=== PATIENT | male | born 1965 | race Caucasian/White ===

== ENCOUNTER → 2024-03-13 | Outpatient (CLI) | payer MEDICARE, MEDICAID, SELFPAY ==
--- NOTE | 2024-03-13 07:31 | MRI_ITS ---
STUDY: MRI CERVICAL SPINE REASON FOR EXAM: Male, 58 years old. pain -- Multi-Levels TECHNIQUE: MRI examination of the cervical spine obtained with standard protocol including multiplanar multiecho Noncontrast imaging. Contrast: No contrast administered COMPARISON: Plain film examination cervical spine dated 02/28/2024. FINDINGS: Vertebral bodies and alignment: 1. Vertebral body height and alignment are maintained, there is however reversal of cervical lordosis. No evidence fracture destructive marrow replacement process subluxation or acutely acquired canal stenosis. No significant Modic endplate changes noted. 2. Prevertebral soft tissue planes have normal appearance. Normal appearance the odontoid process and alignment of the craniocervical junction. 3. Normal appearance the posterior muscular fascial planes of the cervical spine, and the posterior ligamentous support structure the cervical spine is intact. Intervertebral disc levels: C2-3: Disc desiccation, no evidence of disc herniation or canal stenosis. Bilateral foraminal stenosis present greater on LEFT than RIGHT contributed by uncovertebral joint and facet hypertrophic changes. C3-4: Disc desiccation, broad-based disc bulge/protrusion osteophyte complex with deformity the anterior epidural space at, central canal is maintained at 9 mm. Mild cord contact without evidence of acute cord compression. Bilateral foraminal stenosis greater on LEFT than RIGHT. C4-5: Disc desiccation, minimal disc bulge and osteophyte complex without evidence of canal stenosis or cord compression. Bilateral foraminal narrowing greater on LEFT than RIGHT. C5-6: Disc desiccation, mild loss disc height, broad-based posterior disc bulge and osteophyte complex. There is deformity of the anterior epidural space. No evidence however of central canal stenosis. No cord compression. Bilateral foraminal stenosis due to uncovertebral joint hypertrophic changes with potential bilateral C6 nerve root impingement within the neural foramina. C6-7: Disc desiccation, broad-based posterior disc bulge without evidence disc herniation or canal stenosis. Bilateral foraminal stenosis due to uncovertebral joint hypertrophic changes greater on RIGHT than LEFT with potential impingement of the emerging C7 nerve root greater on the RIGHT. C7-T1: Normal endplates. Normal disc height, signal and morphology. Normal central canal and intervertebral neural foramina. Spinal CORD: There is normal appearance the spinal cord. No intramedullary signal abnormality, masses or syrinx. Normal appearance of the cervical medullary junction. No evidence cord compression. MRI/Spine Cervical (Routine) IMPRESSION: 1. Multilevel cervical spondylosis, reversal of cervical lordosis is noted. Only mild canal narrowing. There is broad-based chronic appearing bulge/protrusion osteophyte complex at T3-4 with mild cord contact. 2. No acute disc herniation, acutely acquired canal stenosis or cord compression or impingement. 3. Multilevel foraminal stenosis as detailed contributed by uncovertebral joint and facet hypertrophic changes. This is most significant at C5-C6 with potential impingement of the C6 nerve roots bilaterally, as well as RIGHT greater than LEFT at C6-7 with potential impingement of the emerging RIGHT C7 nerve root. 4. Normal appearance the spinal cord, no evidence cord compression and edema or intramedullary signal abnormality Electronically Signed: Harinder Quevedo MD at 21:19 EDT ,
== END | disposition home or self-care (01) ==
LOC: MRI 15:11
PROVIDERS: Referring Provider Orthopaedic Surgery; Visit Provider Orthopaedic Surgery
DX: M50.30 Other cervical disc degeneration, unspecified cervical region (principal)
CPT/HCPCS: 72141

== ENCOUNTER 2024-07-25 12:42 | Inpatient (IN) | payer MEDICARE, MEDICAID, SELFPAY ==
--- NOTE | 2024-05-03 14:13 | EKG12_ITS ---
Test Reason : PREOP Blood Pressure : / mmHG Vent. Rate : 058 BPM Atrial Rate : 058 BPM P-R Int : 150 ms QRS Dur : 092 ms QT Int : 400 ms P-R-T Axes : 071 -11 079 degrees QTc Int : 392 ms Sinus bradycardia Nonspecific T wave abnormality Abnormal ECG Confirmed by AKIKO RINALDI, ELEANOR ([id number]), continuity editor MILTON GRAY ([id number]) on 05/04/2024 6:02:48 AM Referred By: Je Beckett Confirmed By:ELEANOR WHARTON MD
[2024-05-03 15:26] LABS: Absolute Neutrophil Count 6.3 X10^3/uL (2.0-7.7); Basophil% 0.9 % (0-1); Eosinophil# 0.37 X10^3/uL; Eosinophils% 3.4 % (0-5); Hematocrit 46.8 % (40-54); Hemoglobin 15.8 g/dL (13.0-16.5); Lymphocyte % 28.7 % (19-41); Mean Corp Hgb Conc 33.8 g/dL (32-36); Mean Corpuscular Hgb 30.4 pg (27.0-32.0); Mean Platelet Vol. 10.4 fl (6.2-12.0); Monocyte# 0.89 X10^3/uL; Monocyte% 8.2 % (0-10); NRBC Flagged by Analyzer 0 % (0-5); Neutrophil # 6.26 X10^3/uL (2.7-7.7); Neutrophil % 58.2 % (47-70); Platelet Count 228 K/mm3 (150-450); RBC Distribution Width CV 12.8 % (11.6-14.6); RBC Distribution Width SD 42.3 fl (35.1-43.9); White Blood Count 10.8 K/mm3 (4.4-11.0)
[2024-05-03 15:44] LABS: Magnesium 2.3 mg/dL (1.6-2.6)
[2024-05-03 15:47] LABS: Anion Gap 5 (5-15); BUN 19 mg/dL (7-18); BUN/Creat Ratio 12.4 RATIO (10-20); Calcium,Total 8.9 mg/dL (8.5-10.1); Chloride 104 mmol/L (98-107); Creatinine, Serum 1.53 mg/dL (0.70-1.30); EST Glomerular Filtration Rate 49 mL/min (>60); Est Glom Filt Rate - Afr Amer 60 mL/min (>60); Glucose 127 mg/dL (74-106); Potassium 4.3 mmol/L (3.5-5.1); Sodium Level 137 mmol/L (136-145)
[2024-05-03 16:32] LABS: HIV - WCH Non-Reactive (Nonreactive); Hepatitis B Surface Antibody Reactive; Hepatitis C Antibody Non-Reactive (Nonreactive)
[2024-05-05 05:07] LABS: Hepatitis A AB, Total Negative (Negative)
[2024-07-25] VITALS (18 sets, daily range): BP systolic 107–176; BP diastolic 71–103; PULSE 69–104; RESP 16–22; TEMP 36.5–36.8; O2SAT 94–100; BMI 29.5
--- NOTE | 2024-07-25 07:36 | PRE.ANES_ITS ---
ASA Classification* ASA Classification ASA Classification: 3 Assessment & Plan Anesthesia* Anesthesia Assessment Anesthesia Assessment: Discussed sedation and/or anesthesia options, risks, benefits, and alternatives with patient/parents/legal guardian/POA. Questions invited. The patient/parents/legal guardian/POA seems to understand and agrees to proceed with anesthesia plan. Reviewed the physical assessment, medical history, allergy history and patient home medications list prior to surgery/procedure/anesthetic and documented any changes. Performed airway and anesthesia risk assessments. Anesthesia Type Anesthesia Type: General (see written pre anesthesia record for full assessment) Anesthesia Focused Assessment* Airway Assessment Mouth opens: >3 cm Mallampati Score: II Focused Labs Anesthesia Preop lab: CBC WBC 10.8 K/mm3 (4.4-11.0) 05/03/24 14:43 RBC 5.20 M/mm3 (4.6-6.2) 05/03/24 14:43 Hgb 15.8 g/dL (13.0-16.5) 05/03/24 14:43 Hct 46.8 % (40-54) 05/03/24 14:43 Plt Count 228 K/mm3 (150-450) 05/03/24 14:43 CHEMISTRY Potassium 4.3 mmol/L (3.5-5.1) 05/03/24 14:43 Sodium 137 mmol/L (136-145) 05/03/24 14:43 Magnesium 2.3 mg/dL (1.6-2.6) 05/03/24 14:42 BUN 19 mg/dL (7-18) H 05/03/24 14:43 Creatinine 1.53 mg/dL (0.70-1.30) H 05/03/24 14:43 Glucose 127 mg/dL (74-106) H 05/03/24 14:43 COAG Pre-Assessment Diagnosis/Proposed Procedure Planned Operative Procedure(s): (N/A) Anterior Cervical Disc Fusion C3-4, C4-5 and C5-6 Anesthesia History 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 When Was Last Pacemaker Check QUESTION #4 FULL TEXT: You/Your Family Experience fever (hyperthermia) with Anesthesia Last Oral Intake Last Oral intake: Last Oral Intake NPO since Meds taken in AM with sips of water? Meds patient instructed to take am of surgery PONV PONV - residential field manager: PONV - residential field manager Female No 04/28/24 13:10 HX of Motion Sickness No 04/28/24 13:10 HX of N/V After Surgery No 04/28/24 13:10 Non-Smoker No 04/28/24 13:10 Duration of Surgery greater Yes 04/28/24 13:10 than 60 minutes Number of Risk Factors 1 04/28/24 13:10 PONV Score Low Risk 04/28/24 13:10 Height & Weight Height & Weight: Anesthesia: Height & Weight Height 59 ft 03/14/24 14:53 Respiratory Assessment Respiratory Assessment - residential field manager: Respiratory Tract Infection Hx - residential field manager Hx Respiratory Tract Infection No 04/28/24 13:10 STOP Sleep Apnea STOP Sleep Apnea - residential field manager: STOP Sleep Apnea - residential field manager Hx Hypertension Yes: PER PT, CONTROLLED ON 04/28/24 13:10 MEDS Hx Sleep Apnea No 04/28/24 13:10 CPAP BIPAP Do you snore loudly (louder No 04/28/24 13:10 than talking or can be heard Do you often feel tired/ No 04/28/24 13:10 fatigued/ sleepy during daytime? Has anyone observed you stop No 04/28/24 13:10 breathing during sleep? STOP Results Negative 04/28/24 13:10 QUESTION #5 FULL TEXT : Do you snore loudly (louder than talking or can be heard through closed doors)? 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 Specify any problems Hx of Preganancy in last 3 N/A 04/28/24 13:10 Months Nurse Filling Out Transfusion MGRIFFITH 04/28/24 13:10 & Questions: Date: 04/28/24 04/28/24 13:10 Time: 13:14 04/28/24 13:10 Patient unable to answer at this time (ie. confused, unrespo /Reproduction History /Reproductive History - residential field manager: /Reproductive Hx- residential field manager Hx Now Gestational Age (in weeks): EDC: Hx Hx Para Hx Section SAB Active Medications Active Medications: Current Medications Generic Name Dose Route Start Last Admin Trade Name Freq PRN Reason Stop Dose Admin Acetaminophen 1,000 mg 07/25/24 09:00 Acetaminophen 500 Mg Tablet PO 07/25/24 09:01 X1 ONE Dexamethasone Sodium Phosphate 10 mg 07/25/24 10:00 Dexamethasone 10 Mg/Ml Vial IV 07/25/24 10:01 PREOP ONE Cefazolin Sodium 2 gm/ N/A 20 mls @ 400 mls/hr 07/25/24 09:00 IV 07/25/24 09:02 PREOP ONE Magnesium Sulfate 1 gm/ 102 mls @ 408 mls/hr 07/25/24 09:00 Dextrose IV 07/25/24 09:14 X1 ONE Lactated Ringer's 1,000 mls @ 15 mls/hr 07/25/24 07:30 IV 07/30/24 20:49 .Q48H SARWAT Protocol Insulin Human Lispro 1 - 6 unit 07/25/24 09:00 Insulin Lispro 100 Unit/Ml Insuln.Pen SC Q4H PRN PRN BG>/= 180, SEE PROTOCOL Protocol PFSH Medical History Wears dentures Bipolar disorder Anxiety Depression PTSD (post-traumatic stress disorder) Marijuana use Ambulates with cane Arthritis Urinary incontinence Migraine headache Back pain Seizures History of ulceration Smoker Shortness of breath on exertion Chronic cough Leg cramps History of echocardiogram History of stress test History of heart attack GERD (gastroesophageal reflux disease) COPD (chronic obstructive pulmonary disease) High cholesterol Hypertension Heart disease Home Medications ?Medication ?Instructions ?Recorded ?Last Taken ?Type albuterol sulfate 90 mcg/actuation 2 puff inhalation Q6H PRN 05/12/23 Unknown History aerosol inhaler shortness of breath or wheezing amlodipine 5 mg tablet 5 mg PO DAILY HTN 05/12/23 Unknown History aspirin 81 mg tablet,delayed 81 mg PO DAILY HEART HEALTH 05/12/23 Unknown History release atorvastatin 80 mg tablet 80 mg PO DAILY HLD 05/12/23 Unknown History budesonide 180 mcg/actuation 2 inh inhalation BID BREATHING 05/12/23 Unknown History breath activated powder inhaler escitalopram oxalate 10 mg tablet 10 mg PO DAILY MOOD 05/12/23 Unknown History ezetimibe 10 mg tablet 10 mg PO DAILY HLD 05/12/23 Unknown History gabapentin 600 mg tablet 600 mg PO Q12H NERVE PAIN 05/12/23 Unknown History ipratropium 0.5 mg-albuterol 3 mg 3 ml inhalation Q6H PRN shortness 05/12/23 Unknown History (2.5 mg base)/3 mL nebulization of breath soln lisinopril 40 mg tablet 40 mg PO DAILY HTN 05/12/23 Unknown History metoprolol succinate 50 mg 50 mg PO BID HTN 05/12/23 Unknown History tablet,extended release 24 hr paliperidone 3 mg tablet,extended 3 mg PO QAM PTSD 05/12/23 Unknown History release 24 hr pantoprazole 40 mg tablet,delayed 40 mg PO DAILY GERD 05/12/23 Unknown History release tiotropium bromide 2.5 2 puff inhalation DAILY BREATHING 05/12/23 Unknown History mcg/actuation mist for inhalation (Spiriva Respimat) tizanidine 4 mg tablet 4 mg PO Q8H PRN muscle spasticity 05/12/23 Unknown History Allergy/AdvReac Type Severity Reaction Status Date / Time phenytoin (From Dilantin) Allergy UNKNOWN Verified 07/24/24 13:18 Family History Other Arthritis COPD (chronic obstructive pulmonary disease) Diabetes Myocardial infarction Surgical History History of coronary artery stent placement History of colonoscopy H/O cataract removal with insertion of prosthetic lens History of vasectomy History of tonsillectomy Social History Smoking Status: Current every day smoker tobacco type: cigarettes alcohol intake: current Review of Systems (Anesthesia) ROS Narrative System reviewed and no additional complaints, except as documented.
[2024-07-25] MEDS: Lactated Ringers 1,000 ML 15 ML IV (07:45)
[2024-07-25] MEDS: Magnesium 1 GM over 15 mins IV (07:45)
--- NOTE | 2024-07-25 08:00 | RAD_ITS ---
STUDY: X-RAY - CERVICAL SPINE REASON FOR EXAM: Male, 59 years old. Intraoperative exam TECHNIQUE: Intraoperative Views Of The Cervical Spine were obtained intraoperatively on a C-arm. COMPARISON: 03/24/2024 FINDINGS: Intraoperative views of the cervical spine were obtained for anterior fusion of C3-C7 with plates and screws. Images were obtained for documentation Number of fluoroscopic images 6. Fluoroscopy time: 12 seconds. Radiation dose: 1.53 mGy. RAD/Cerv Spine 2 or 3 Views IMPRESSION: Intraoperative exam as described above. Electronically Signed: Ryan Cameron MD at 12:34 EDT ,
[2024-07-25 08:08] LABS: Bedside Glucose 84 mg/dL (74-106)
[2024-07-25] MEDS: Acetaminophen 500 MG Tablet 1000 MG PO (08:08)
[2024-07-25] MEDS: dexAMETHasone 10 MG/ML Vial IV (08:10)
--- NOTE | 2024-07-25 08:57 | HP.PCM_ITS ---
History and Physical Date of Admission: 07/25/24 MR#: [id number] Acct: [id number] Name: BAKARI BELTRÁN Sr. Rep #: [id number] : 1965 Provider: Dr. Je Beckett MD Age/Sex: 59/M Location: [facility] – [place] Status: Signed Intake Vital Signs 03/14/2414:53 Height 59 ft Intake Visit Reasons: cervical fusion Chief Complaint: Cervical neck pain Accompanied by: Significant Other Allergies phenytoin (From Dilantin) Allergy (Verified 07/25/24 07:58) UNKNOWN Medications ?Medication ?Instructions ?Recorded ?Confirmed ?Type albuterol sulfate 90 mcg/actuation 2 puff inhalation Q6H PRN 05/12/23 07/25/24 History aerosol inhaler shortness of breath or wheezing amlodipine 5 mg tablet 5 mg PO DAILY HTN 05/12/23 07/25/24 History aspirin 81 mg tablet,delayed 81 mg PO DAILY HEART HEALTH 05/12/23 07/25/24 History release atorvastatin 80 mg tablet 80 mg PO DAILY HLD 05/12/23 07/25/24 History budesonide 180 mcg/actuation 2 inh inhalation BID BREATHING 05/12/23 07/25/24 History breath activated powder inhaler ezetimibe 10 mg tablet 10 mg PO DAILY HLD 05/12/23 07/25/24 History gabapentin 600 mg tablet 600 mg PO Q12H NERVE PAIN 05/12/23 07/25/24 History ipratropium 0.5 mg-albuterol 3 mg 3 ml inhalation Q6H PRN shortness 05/12/23 07/25/24 History (2.5 mg base)/3 mL nebulization of breath soln lisinopril 40 mg tablet 40 mg PO DAILY HTN 05/12/23 07/25/24 History metoprolol succinate 50 mg 50 mg PO BID HTN 05/12/23 07/25/24 History tablet,extended release 24 hr pantoprazole 40 mg tablet,delayed 40 mg PO DAILY GERD 05/12/23 07/25/24 History release tiotropium bromide 2.5 2 puff inhalation DAILY BREATHING 05/12/23 07/25/24 History mcg/actuation mist for inhalation (Spiriva Respimat) tizanidine 4 mg tablet 4 mg PO Q8H PRN muscle spasticity 05/12/23 07/25/24 History PFSH Medical History Wears dentures Bipolar disorder Anxiety Depression PTSD (post-traumatic stress disorder) Marijuana use Ambulates with cane Arthritis Urinary incontinence Migraine headache Back pain Seizures History of ulceration Smoker Shortness of breath on exertion Chronic cough Leg cramps History of echocardiogram History of stress test History of heart attack GERD (gastroesophageal reflux disease) COPD (chronic obstructive pulmonary disease) High cholesterol Hypertension Heart disease Surgical History History of coronary artery stent placement History of colonoscopy H/O cataract removal with insertion of prosthetic lens History of vasectomy History of tonsillectomy Family History Other Arthritis COPD (chronic obstructive pulmonary disease) Diabetes Myocardial infarction Social History Smoking Status: Current every day smoker tobacco type: cigarettes alcohol intake: current HPI cervical fusion Details: This documentation accurately reflects the service provided and the decisions made by me, Dr. Je Beckett MD 07/24/24 1314. Part of today?s visit was documented by Veronica HERNANDEZ and Diana RUBIO, acting as scribe. BAKARI BELTRÁN is a 59 year old M here today for pre op cervical spine dos: 07/25/24. He has been cleared from cardiology and his PCP. He has continued to smoke about a pack of day leading up to this surgery. He has stopped his aspirin in preparation for tomorrow. HPI from 03/24/24: BAKARI BELTRÁN is a 58 year old M here today for Cervical pain. Patient saw Dr Childs who went over his MRI review and told the Patient he might need a Cervical fusion, and Patient is ready to move forward with it. Rates pain 5 out of 10 today as soreness radiates from neck into B/L scapula areas. No new concerns. Bakari is here with his ex-. He has seen Dr. Childs multiple times for low back pain as well as neck pain. He mentioned that his neck pain has been there since 1987 from an accident. However since his lower back symptoms were always more than the neck, he felt like his neck symptoms were always neglected. Over time he has worsened with his neck pain and now this radiates towards the occiput as well as to the intrascapular area both sides. He denies any actual radiation into the upper extremities but mentions that his left hand feels weak and numb especially in the dorsum of the hand. He notices early dexterity issues especially in his right hand which is his dominant hand his handwriting has worsened. He also mentions of balance issues some of which are attributable to dizziness and lightheadedness but sometimes he feels like his legs give out on him even when he is completely conscious. He mentioned that his dexterity and balance issues are slowly worsening with time. He used to smoke 3 packs/day and now he has cut down to 1 pack/day. He has known COPD. Ortho Exam General General: Yes no acute distress Neurologic: Yes alert and Yes oriented x3 Spine SPINE TESTING CERVICAL THORACIC LUMBAR Musculoskeletal Strength 0=absent - 5=normal Details: Examination of the neck shows midline and paraspinal tenderness. Neurologic evaluation of upper and lower extremity shows 5 out of 5 power normal shows normal sensations in all dermatomes of both upper and lower extremities. Brady's is negative. Romberg's is positive. Tandem gait shows severe imbalance. There is no hyperreflexia lower extremities. He holds his neck in a forward flexed posture suggestive of kyphosis. 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 Again reviewed prior imaging which showed C3-4 spondylolisthesis with kyphosis. Multilevel disc height loss noticed. C3-6 show disc degeneration with foraminal stenosis. C4-5 and C5-6 show mild retrolisthesis. Cord indentation seen most severe at C3-4. Reviewed the benefits and risks of surgery. Risks of surgery include bleeding, infection, visceral injury, hardware failure, pseudoarthrosis, adjacent segment degeneration, pneumonia, DVT, pulmonary embolism, atelectasis, dysphagia, persistent pain, stretch injuries, chance for future surgeries. Discussed that because he is a smoker and has not stopped prior to surgery, his infection risk and heal time is increased. Patient understands and agrees to proceed with surgery. Explained in detail the procedure of the cervical fusion. Discussed cervical collar wear schedule. Discussed post surgery restrictions such as no bending, lifting, or twisting. Answered all questions that he had today in preparation for tomorrow. Consent was signed. Patient is in agreement.
[2024-07-25] MEDS: Cefazolin 2 GM in Syringe IV (09:04)
--- NOTE | 2024-07-25 12:28 | OP.PCM_ITS ---
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 Anesthesia: Gen. endotracheal Estimated blood loss: 40 mL Complications: None Instrumentation used: Medtronic [place] Elite plate, LASR corticocancellous block Indications: The patient is a pleasant 59-year-old gentleman who presented with neck pain, bilateral upper extremity radiation, left hand weakness, difficulty with balance. MRI showed C3-6 disc degeneration, kyphosis, stenosis with cord indentation without cord signal changes. In order to halt the progression of myelopathy, the patient requested surgical treatment. All risks and benefits of the procedure were explained to the patient. The risks include but are not limited to infection, bleeding, injury to nerves and vessels, vertebral artery injury, spinal cord injury, paralysis, vocal cord paralysis, injury to esophagus, pseudoarthrosis, need for further procedures, adjacent segment degeneration. Procedure: The patient was identified in the preoperative suite using unique patient identifiers. Skin was marked consent was taken and all questions were answered. The patient was then brought back to the operative room and a timeout was performed. General endotracheal anesthesia was given. Intraoperative neuro monitoring leads were applied. The patient was carefully positioned supine on a regular OR table. A lateral view with a C-arm was done to identify the level and to define the incision. The anterior neck was then prepped and draped in the usual fashion. A final timeout was then performed. A transverse skin incision was taken to the left of midline. Subcutaneous tissue was then divided with Bovie. Platysma was identified and cut along the incision with scissors. The fascial interval between the sternocleidomastoid and the larynx was developed. Omohyoid was identified and retracted. The esophagus with the larynx was retracted medially to reach the prevertebral fascia. Marker x-ray was performed with bent spinal needle and disc space and levels were confirmed. Longus coli muscle was elevated on both sides at and above and below C3-6 discs. Self-retaining retractors were then placed. A long handle knife was then used to perform annulotomy at C3-4. Disc fragments were removed with the pituitary. Simpson pins were placed in C3 and C4 for disc distraction. Curettes and bur was utilized to remove cartilage from the endplates. Discectomy was performed laterally up to the uncovertebral joints. Posterior osteophytes were thinned down with the bur and adequate decompression in the central and foraminal areas were performed and PLL was thinned out. Once the disc space was prepared, trials of various sizes were utilized. Thorough irrigation was given. 6 mm LASR cortical cancellous allograft bone large footprint was then fashioned in such a way that concavities were burred out inferiorly and superiorly and half cc of DBX (demineralized bone matrix) was squeezed into the cancellous portion. The graft was then inserted into the C3-4 disc space. The retractors were then repositioned and the procedure was repeated for C4-5 and C5-6 discs with complete discectomy. Graft sizes were 6 mm at with large footprint at at both C4-5 and C5-6. The grafts were found to be in good apposition with good pullout strength. A 57 mm Medtronic [place] Elite plate was then fixed to C3-6 with 16 mm screws. A lateral x-ray was then taken to check the length of the screws. Both AP and lateral x-rays showed good positioning of plate and screws. The locking mechanism over the screw heads was then turned. Thorough irrigation was again given. Hemostasis was achieved. A Erma drain was then inserted. Closure was done with 3-0 Vicryl for the platysma and subcutaneous tissue layers and 4-0 Monocryl for the skin. Closure was done around the drain. Steri-Strips were applied and dressing was done with 4 x 4 gauze and Tegaderm. A cervical collar was then applied. The patient was then woken up from anesthesia extubated and taken to PACU in stable condition. From here, the patient will be transitioned to the floor. Intraoperative neuro monitoring was performed throughout this procedure. Motor evoked potentials were run periodically. All potentials remained at baseline throughout the procedure. I was present for the entire surgery and performed the surgery myself. Surgeon: Je Beckett youth career specialist: Diana Granados Procedures Musculoskeletal [id number]: Other Procedure See Report
--- NOTE | 2024-07-25 12:55 | PCM.POST.ANE ---
Anesthesia: Postop Eval I Current Vital Signs Temperature: 97.7 F Pulse Rate: 102 Blood Pressure: 118/83 Respiratory Rate: 22 Pulse Ox: 100 Assessment Airway patent: Yes Spontaneous unlabored respirations: Yes nausea: No Vomiting: No Anesthesia Complication: No Fluid Hydration Crystalloid volume administer (ml): 1,000 Total IV fluid infused: 1,000 Progress Note Anesthesia document: Postop Eval 1 completed: Yes
[2024-07-25] MEDS: dexAMETHasone 4 MG/ML Vial IV ×2 (14:06→20:05)
[2024-07-25] MEDS: Cefazolin 2 GM in 0.9% Normal Saline (100mL Bag) 100 ML IV (16:51)
[2024-07-25] MEDS: Ensure Surgery 237 ML LIQUID PO (16:51)
[2024-07-25] MEDS: Methocarbamol 500 MG Tablet 1000 MG PO ×2 (16:52→23:15)
--- NOTE | 2024-07-25 16:55 | PCM.POSTANE2 ---
Anesthesia Postop Eval I Sum Anesthesia Postop Eval I Summary Anesthesia Postop Eval I Summary: Anesthesia Postop Eval I: Assessment Summary Airway patent Spontaneous unlabored respirations Mental status nausea Vomiting Anesthesia Postop Eval I: Fluid Summary Crystalloid volume administer (ml) Colloids volume administered ( ml) Blood Product volume administered (ml) Total IV fluid infused Anesthesia Postop Eval I: Summary Notes Anesthesia Complication Anesthesia Complication Comment: Post-operative progress note Anesthesia: Postop Eval II Evaluation Mental status: Awake and Calm Pain Level: 2 nausea: No Vomiting: No Complications Anesthesia Complication: No
[2024-07-25] MEDS: Morphine 2 MG/ML Syringe IV (17:07)
[2024-07-25] MEDS: Metoprolol Tartrate 50 MG Tablet PO (17:11)
[2024-07-25] MEDS: HYDROcodone Bitartrate/Apap 5/325 Tablet PO ×2 (18:06→22:48)
[2024-07-25] MEDS: Budesonide Respules 0.5 MG/2 ML AMPUL.NEB. INHALATION (19:07)
[2024-07-25] MEDS: Ipratropium 0.5 MG/2.5 ML SOLUTION INHALATION (19:07)
[2024-07-25] MEDS: 0.9% Saline Lock 10 ML Syringe IV (20:05)
[2024-07-25] MEDS: Senna/Docusate Sodium 1 Tablet 2 TABLET PO (23:14)
[2024-07-25] MEDS: Gabapentin 600 MG Tablet PO (23:14)
[2024-07-26] MEDS: Cefazolin 2 GM in 0.9% Normal Saline (100mL Bag) 100 ML IV (01:37)
[2024-07-26] MEDS: dexAMETHasone 4 MG/ML Vial 2 MG IV ×2 (01:37→08:41)
[2024-07-26] MEDS: 0.9% Saline Lock 10 ML Syringe IV (03:32)
[2024-07-26] MEDS: Morphine 2 MG/ML Syringe IV (03:33)
[2024-07-26 03:37] VITALS: BP 137/93; PULSE 83; RESP 18; TEMP 36.7; O2SAT 95
[2024-07-26 06:05] LABS: Hematocrit 44.1 % (40-54); Hemoglobin 14.8 g/dL (13.0-16.5); Mean Corp Hgb Conc 33.6 g/dL (32-36); Mean Corpuscular Hgb 30.5 pg (27.0-32.0); Mean Corpuscular Volume 90.7 fL (80-94); Platelet Count 244 K/mm3 (150-450); RBC Distribution Width CV 12.5 % (11.6-14.6); RBC Distribution Width SD 41.2 fl (35.1-43.9); Red Blood Count 4.86 M/mm3 (4.6-6.2); White Blood Count 18.3 K/mm3 (4.4-11.0)
[2024-07-26 06:27] LABS: Anion Gap 6 (5-15); BUN 15 mg/dL (7-18); BUN/Creat Ratio 13.9 RATIO (10-20); Calcium,Total 8.8 mg/dL (8.5-10.1); Chloride 106 mmol/L (98-107); Creatinine, Serum 1.08 mg/dL (0.70-1.30); EST Glomerular Filtration Rate 74 mL/min (>60); Est Glom Filt Rate - Afr Amer 89 mL/min (>60); Estimated Creatinine Clearance 79.89 ml/min; Glucose 145 mg/dL (74-106); Potassium 4.4 mmol/L (3.5-5.1); Sodium Level 136 mmol/L (136-145)
--- NOTE | 2024-07-26 07:00 | RAD_ITS ---
STUDY: X-RAY - CERVICAL SPINE REASON FOR EXAM: Male, 59 years old. s/p cervical fusion -- please do upright AP and LAT TECHNIQUE: 2 view(s) of the cervical spine were obtained. COMPARISON: 03/24/2024 FINDINGS: Normal anterior atlantoaxial articulation. Normal odontoid process. Normal cervical lordosis. Interval anterior cervical discectomy and fusion from C3 through C6 with anatomic alignment. Normal disc space heights. Normal visualized intervertebral neuroforamina. The soft tissue structures are unremarkable. RAD/Cerv Spine 2 or 3 Views IMPRESSION: Interval anterior cervical discectomy and fusion from C3 through C6. Electronically Signed: Harinder Riojas MD at 9:31 EDT ,
[2024-07-26] MEDS: Ipratropium 0.5 MG/2.5 ML SOLUTION INHALATION ×2 (07:24→12:53)
[2024-07-26] MEDS: Budesonide Respules 0.5 MG/2 ML AMPUL.NEB. INHALATION (07:24)
[2024-07-26 07:30] VITALS: PULSE 81; RESP 18
[2024-07-26] MEDS: Methocarbamol 500 MG Tablet 1000 MG PO ×2 (08:42→14:04)
[2024-07-26] MEDS: Ezetimibe 10 MG Tablet PO (08:43)
[2024-07-26] MEDS: Senna/Docusate Sodium 1 Tablet 2 TABLET PO (08:43)
[2024-07-26] MEDS: Pantoprazole Sodium 40 MG Tablet PO (08:44)
[2024-07-26] MEDS: Lisinopril 40 MG Tablet PO (08:45)
[2024-07-26] MEDS: amLODIPine 5 MG Tablet PO (08:45)
[2024-07-26] MEDS: Atorvastatin Calcium 80 MG Tablet PO (08:46)
[2024-07-26 08:47] VITALS: PULSE 78
[2024-07-26] MEDS: Metoprolol Tartrate 50 MG Tablet PO (08:47)
[2024-07-26] MEDS: HYDROcodone Bitartrate/Apap 5/325 Tablet PO (08:52)
[2024-07-26] MEDS: Ensure Surgery 237 ML LIQUID PO ×2 (08:53→11:16)
[2024-07-26] MEDS: Gabapentin 600 MG Tablet PO (08:53)
[2024-07-26 08:59] VITALS: BP 147/95; PULSE 78; RESP 19; TEMP 36.7; O2SAT 96
--- NOTE | 2024-07-26 10:55 | CASEMGMT ---
LINA HERRMANN Assessment: Face to Face with pt for initial transition planning/care coordination assessment. LINA HERRMANN introduced self and role at [facility], pt voices understanding and consents to assessment. Pt is A&O x4 and answers all questions appropriately at this time. Pt sitting up in chair in no distress. Pt states he just ambulated hallways indep. Care providers, pharmacy, and demographics verified/updated. Admitting Dx: cervical fusion Strata Score: 1 PCP:[facility] [employer] Specialists:bari Beckett; Sakshi cardio Preferred Pharmacy: [facility] Retail Insurance:[facility] Dual, [facility] Community Prescription Benefit: yes LNOK: Delfina Null, dtr; Jade Verde, ex Living Arrangements: Pt lives with ex and adult dtr in a single story home with 2-3 steps to enter with a rail. Pt reports he is I in ADLs and denies concerns at home. Transportation: Pt ex transports him to medical appts. DME:4 prong cane, walker available HHC/SNF: Denies hx of Pt states no concerns with going home at time of dc. Pt states no further concerns/needs. CM to follow. Advised pt to ask CM if any further question/concerns/needs arise, voices understanding. Pt Goal: Home Plan: Home Rosalie MILLS CM
[2024-07-26] MEDS: FLU VACC 2024-25(6MOS UP)/PF 45 MCG/0.5 ML SYRINGE IM (11:15)
[2024-07-26 13:05] VITALS: PULSE 79; RESP 18
[2024-07-26 14:07] VITALS: BP 126/86; PULSE 87; RESP 18; O2SAT 96
--- NOTE | 2024-07-26 14:08 | PCM.PN.ORT ---
Documented by User: JOANNE Aguayo 07/26/24 14:14 Subjective Subjective POD 1, C3-6 fusion. Patient is doing well with his pain well controlled. He has walked with physical therapy and has been cleared to return home. Objective Data Objective Data Vital Signs: Vital Signs Temp Pulse Resp BP Pulse Ox O2 Del Method O2 Flow Rate 98.1 F 79 18 147/95 H 96 Room Air 4 07/26/24 08:59 07/26/24 13:05 07/26/24 13:05 07/26/24 08:59 07/26/24 08:59 07/26/24 08:59 07/25/24 14:45 Oxygen Flow Rate (L/min) 4 Oxygen Delivery Method Room Air Weight: 199 lb 9.6 oz Body Mass Index (BMI) 29.5 Intake & Output: Intake and Output for Last 24 Hours 07/24/24 07/25/24 07/26/24 23:59 23:59 23:59 Intake Total 2782 / 2782 110 / 110 Balance 2782 / 2782 110 / 110 Lab / Micro Data 07/26/24 05:30 07/26/24 05:30 Labs: Laboratory Results - last 24 hr 07/26/24 05:30: WBC 18.3 H, RBC 4.86, Hgb 14.8, Hct 44.1, MCV 90.7, MCH 30.5, MCHC 33.6, RDW Std Deviation 41.2, RDW Coeff of Luis 12.5, Plt Count 244, MPV 10.0, Sodium 136, Potassium 4.4, Chloride 106, Carbon Dioxide 25.0, Anion Gap 6, BUN 15, Creatinine 1.08, Estim Creat Clear Calc 79.89, Est GFR (MDRD) Af Amer 89, Est GFR (MDRD) Non-Af 74, BUN/Creatinine Ratio 13.9, Glucose 145 H, Calcium 8.8 Micro: Microbiology 05/03/24 14:43 Swab (Method) Nasal Screen MRSA/MSSA - Final Radiography Diagnostic Testing: Radiology Impression Cervical Spine X-Ray 07/26/24 07:00 IMPRESSION: Interval anterior cervical discectomy and fusion from C3 through C6. Electronically Signed: Harinder Riojas MD at 9:31 EDT , Physical Exam Narrative Drain removed and incision cleaned and covered with gauze and tegaderm. Upper extremity strength shows 5x5 power. Normal sensation across all dermatomes. Const alert, oriented x3 and no apparent distress Assessment & Plan Assessment/Plan (1) S/P cervical spinal fusion: PLAN: Plan Discharge signed. Home meds will include hydrocodone-acetaminophen, methocarbamol, senna. Discussed that he should wear the cervical collar at all times during the first 2 weeks, follow up in 2 weeks in clinic. No bending, lifting, or twisting. Documented by User: Dr. Je Beckett MD 07/26/24 15:23 Objective Data Lab / Micro Data 07/26/24 05:30 07/26/24 05:30 Assessment & Plan Assessment/Plan (1) S/P cervical spinal fusion: PLAN: Plan Postop day 1 status post C3 6 ACDF. X-rays done, reviewed, look good. PT cleared. Tolerating soft solids. Has mild air hunger at baseline from COPD. Saturations remain within normal limits. Okay to discharge. Discharge signed. Home meds will include hydrocodone-acetaminophen, methocarbamol, senna. Discussed that he should wear the cervical collar at all times during the first 2 weeks, follow up in 2 weeks in clinic. No bending, lifting, or twisting.
== END 2024-07-26 14:21 | disposition home or self-care (01) | DRG 473 ==
LOC: ACINP 13:38 → MS3 14:50
PROVIDERS: Anesthesiology; Student in an Organized Health Care Education/Training Program; Admitting Provider Orthopaedic Surgery Orthopaedic Surgery of the Spine; PCP Nurse Practitioner Family; Referring Provider Orthopaedic Surgery Orthopaedic Surgery of the Spine; Visit Provider Orthopaedic Surgery Orthopaedic Surgery of the Spine
PROC: 0RG20K0 Fusion of 2 or more Cervical Vertebral Joints with Nonautologous Tissue Substitute, Anterior Approach, Anterior Column, Open Approach (ICD-10-PCS; CPT 22551; principal; 2024-07-25 08:30)
DX: M50.022 Cervical disc disorder at C5-C6 level with myelopathy (principal); E78.00 Pure hypercholesterolemia, unspecified; F31.9 Bipolar disorder, unspecified; J44.9 Chronic obstructive pulmonary disease, unspecified; I10 Essential (primary) hypertension; M40.202 Unspecified kyphosis, cervical region; M50.122 Cervical disc disorder at C5-C6 level with radiculopathy; I25.10 Atherosclerotic heart disease of native coronary artery without angina pectoris; M43.12 Spondylolisthesis, cervical region; F17.200 Nicotine dependence, unspecified, uncomplicated; M50.11 Cervical disc disorder with radiculopathy, high cervical region; Z95.5 Presence of coronary angioplasty implant and graft
CPT/HCPCS: 36415; 72040; 76000; 80048; 82962; 83735; 85025; 85027; 86703; 86706; 86708; 86803; 86850; 86900; 86901; 87081; 90656; 93005; 94640; 94668; 97162; 97166; C1713; J7120; A4216; J2405; J3475